=== PATIENT | male | born 1945 | race American Indian/Alaskan Native ===

== ENCOUNTER 2019-11-06 10:31 | Day surgery (SDC) | payer OTHER ==
[2019-11-06] MEDS ORDERED: SODIUM CHLORIDE 0.9% 1000 ML 1,000 ML IV SCH (11:00)
[2019-11-06] MEDS ORDERED: WATER FOR IRRIG STERILE 250 ML BOTTLE IR ONE ×2 (11:03→12:13)
[2019-11-06] MEDS ORDERED: WATER FOR IRRIG STERILE 1,000 ML BOTTLE ONE (11:03)
[2019-11-06] MEDS ORDERED: LIDOCAINE MPF (2%) 20 MG/1 ML VIAL 5 ML ONE (11:30)
--- NOTE | 2019-11-06 11:52 | Anesthesia Consultation ---
Anesthesia Consult and Med Hx Date of service: 11/06/19 - Airway Anesthetic Teeth Evaluation: Poor (multiple missing, broken teeth) ROM Head & Neck: Adequate Mental/Hyoid Distance: Adequate Mallampati Class: Class II Intubation Access Assessment: Probably Good - Pre-Operative Health Status ASA Pre-Surgery Classification: ASA3 Proposed Anesthetic Plan: MAC - Pulmonary Hx Smoking: Yes (1 p/day x 54 years) - Cardiovascular System Hx Hypertension: Yes Hx Coronary Artery Disease: No (high cholesterol) - Endocrine Hx Non-Insulin Dependent Diabetes: Yes - Other Systems Hx Alcohol Use: Yes (2-3 beers/day) Hx Obesity: Yes (BMI 33.8)
--- NOTE | 2019-11-06 11:55 | Anesthesia Day of Surgery ---
Anesthesia Day of Surgery - Day of Surgery Patient Examined: Yes Patient H&P Reviewed: Yes Patient is NPO: Yes Beta Blockers: Yes
[2019-11-06] MEDS ORDERED: PROPOFOL 200 MG/20 ML VIAL IV ONE ×3 (12:53)
--- NOTE | 2019-11-06 13:24 | Procedure Note ---
Date of procedure: 11/06/19 Pre-op diagnosis: GERD and Colon POlyp Screening Procedure: EGD with biopsy and Colonoscopy Anesthesia: MAC Surgeon: SARITA CHILDRESS Estimated blood loss: minimal Pathology: list Specimen disposition: to lab Condition: stable Disposition: same day (Treat with PPI. Encourage fiber intake. Avoid aspirin and NSAID for 4 days; otherwise resume home medication. follow up in 1 to 2 weeks ([phone]).)
--- NOTE | 2019-11-06 13:28 | Operative Report ---
PROCEDURE: Esophagogastroduodenoscopy with biopsy. INDICATIONS: A 74-year-old -Citizen Of [place] gentleman who has a history of alcohol and tobacco use, who has been having GERD symptoms. EGD was done after getting informed consent with MAC anesthesia. Instrument was passed through the hypopharynx into the esophagus, which showed moderately severe erosive esophagitis. It appeared to cover almost 3/4th to almost all of the circumference of the distal esophagus with erosive esophagitis suggestive of grade 3-4 LA definition of esophagitis. The stomach showed antral erosion and gastritis. Pylorus was patent. The duodenum in the first and second portion appeared normal other than for the presence of some duodenitis involving the bulb. Photo documentation was obtained. Biopsy was done from the gastric antrum, gastric body and angular incisura to rule out for H. pylori and atrophic gastritis. There was minimal bleeding associated with the biopsy of the stomach, otherwise on the retroverted view also showed a moderate hiatal hernia and biopsy was also done from the distal esophagus to assess for the severity of the erosive esophagitis. There was minimal bleeding associated with the procedure. No complications associated with the procedure. ASSESSMENT: Gastroesophageal reflux disease symptoms, moderate erosive esophagitis, LA classification grade 3 to grade 4, gastric erosion, gastritis, duodenitis involving the bulb and moderate hiatal hernia. PLAN: To treat the patient with PPI. Encouraged the patient to avoid aspirin and aspirin-related products for the next 4 days, otherwise resume home medication. Also, advised the patient to refrain from tobacco and alcohol products. Treat the patient with PPI. Colonoscopy will also be done for further assessment as part of colon polyp screening. The patient will be asked to follow up in the office in 1-2 weeks' time. The procedure was done in the GI lab with assistance of the GI lab team, which included LUZ MARIA Herrera, devyn Massey and with assistance of anesthesia. JOB# [id number] SHOAIB/GRIS
--- NOTE | 2019-11-06 13:31 | Operative Report ---
PROCEDURE: Colonoscopy. INDICATIONS: The patient had an EGD done prior to the colonoscopy because of GERD symptoms. He was noted to have a moderate hiatal hernia, moderate erosive esophagitis, gastric erosion, gastritis, and duodenitis for which he is to be treated with PPI. Colonoscopy was done as part of colon polyp screening. DESCRIPTION OF PROCEDURE: Initial rectal exam was unremarkable. Instrument was passed through the rectum onto the cecum, which was identified with ileocecal valve and the appendiceal orifice. Visualization was fair to good. The cecum was also examined on the retroverted view. No additional pathology was noted. The cecum, ascending colon, transverse colon showed normal mucosa. There was moderate diverticular disease involving the left colon and the rectum showed minor internal hemorrhoid on the retroverted view. There were no colon polyps noted, but no biopsies done during the colonoscopy, no bleeding associated with the colonoscopy. ASSESSMENT: Colon polyp screening, no colon polyps noted. Moderate left colon diverticula, minor internal hemorrhoid. The patient will be encouraged to take fiber supplements, avoid aspirin and aspirin-related products because of the biopsy done during the EGD, treated with PPI with the advice to follow up in the office in 1-2 weeks' time. The procedure was done in the GI lab with assistance of the GI lab team, which included RN, devyn Smith Reg[place], and with assistance of anesthesia. JOB# [id number] SHOAIB/GRIS
--- NOTE | 2019-11-06 13:49 | Post Anesthesia Evaluation ---
- Post Anesthesia Evaluation Patient Participated: Yes Airway Patent: Yes Stable Respiratory Function: Yes Nausea/Vomiting: No Temp > 96.8F: Yes Pain Manageable: Yes Adequeate Hydration: Yes Anesthesia Complications: No Block Receding Appropriately: Not Applicable Patient on Ventilator: No
[2019-11-06 14:07] VITALS: BP 130/78
== END 2019-11-06 10:32 | disposition home or self-care (01) ==
LOC: GIO 10:31
DX: Z12.11 Encounter for screening for malignant neoplasm of colon (principal); K21.0 Gastro-esophageal reflux disease with esophagitis; K29.50 Unspecified chronic gastritis without bleeding; K30 Functional dyspepsia; K44.9 Diaphragmatic hernia without obstruction or gangrene; K64.8 Other hemorrhoids; K57.30 Diverticulosis of large intestine without perforation or abscess without bleeding; I10 Essential (primary) hypertension; E66.9 Obesity, unspecified; E11.9 Type 2 diabetes mellitus without complications; F17.210 Nicotine dependence, cigarettes, uncomplicated; Z79.84 Long term (current) use of oral hypoglycemic drugs; Z79.899 Other long term (current) drug therapy; Z68.33 Body mass index [BMI] 33.0-33.9, adult; Z72.89 Other problems related to lifestyle; Z98.890 Other specified postprocedural states
CPT/HCPCS: 43239; 45378; 82962; 88305; 88342; J2704; J7030